=== PATIENT | male | born 1965 | race Two or more races ===

== ENCOUNTER 2021-09-28 12:52 | Emergency (ER) | payer MEDICAID ==
[~2021-09-28] VITALS: Ht 160 cm; Wt 81.6 kg
[2021-09-28 18:48] VITALS: BP 132/87
== END 2021-09-28 20:02 | disposition home or self-care (01) ==
LOC: ER 12:52
DX: G43.909 Migraine, unspecified, not intractable, without status migrainosus (principal); E66.9 Obesity, unspecified; Z68.31 Body mass index [BMI] 31.0-31.9, adult
CPT/HCPCS: 70450

== ENCOUNTER 2023-04-06 17:49 | Emergency (ER) | payer MEDICAID ==
[~2023-04-06] VITALS: Ht 165.1 cm; Wt 83.4 kg
[2023-04-06 22:11] VITALS: BP 147/89
== END 2023-04-07 02:25 | disposition left against medical advice (07) ==
LOC: ER 17:49
DX: S80.851A Superficial foreign body, right lower leg, initial encounter (principal); W23.0XXA Caught, crushed, jammed, or pinched between moving objects, initial encounter; Y93.89 Activity, other specified; Y92.89 Other specified places as the place of occurrence of the external cause; Y99.8 Other external cause status
CPT/HCPCS: 73590